=== PATIENT | male | born 1950 | race Caucasian/White ===

== ENCOUNTER → 2018-07-05 | Outpatient (CLI) | payer MEDICARE, BC ==
--- NOTE | 2018-07-05 11:25 | CONS ---
CONSULTATION DATE OF SERVICE: 07/05/2018 A 68-year-old gentleman who has [facility] for possible obstructive sleep apnea-hypopnea syndrome. HISTORY OF PRESENT ILLNESS/SLEEP WAKE EVALUATION: Patient usual sleep schedule from midnight until 7 or 8 a.m. Sometimes he has problem with falling asleep. No TV in bedroom. Patient has history of increasing heart rate while falling asleep and new hearing the pulse by his ears. Using alprazolam, he does not have the symptoms. He usually sleeps on the back position with his with loud snoring and awakenings from sleep up to 3 times with nocturia. Patient has difficulties to breathe through his nose. Breathe through his mouth, feels dry mouth when he wakes up, had some episodes of gasping for air during the sleep. In the morning, patient wakes up tired, worries about his sleep, has problem with memory. [place]ord Sleepiness Scale is 8. PAST MEDICAL HISTORY: Positive for coronary artery disease, hypertension, hyperlipidemia, possible anxiety, BPH. PAST SURGICAL HISTORY: Coronary artery bypass graft in 1996 with some revision in 2000. Carotid stent insertion right side in 2013. MEDICATIONS: Lisinopril, metoprolol, atorvastatin, aspirin, alprazolam. SOCIAL HISTORY: Positive for smoking in the past for about 30 pack years, quit in 1996. Alcohol consumption occasional. FAMILY HISTORY: Hypertension, hyperlipidemia, stroke, arthritis, sinus problems, snoring, headaches, bronchitis, acid reflux, thyroid problems. REVIEW OF SYSTEMS: Awakenings from sleep, episodes of sleepiness during the day. Patient takes naps in afternoon time, feel refreshed after naps. . PHYSICAL EXAM: gentleman without distress. BP 138/79, HR 77, RR 16, height 6, 2, weight 251.8, body mass index 32.2, temperature 98.2, oxygen saturation at room air 95%. OROPHARYNX: Low position of soft palate. Mallampati 4, restriction of nasal breathing on the left side. Wide neck 19 inches in circumference. ABDOMEN: Obese. Heart evaluation decreasing of pulse on both arms where vessels was taken for the CABG. Neck Supple, no JVD. Thyroid is not palpable. LUNGS Clear to percussion and to auscultation. Good air exchange. No wheezing or rhonchi. EXTREMITIES No clubbing or cyanosis. [employer] Awake, alert, and oriented X3. Cranial nerves 2 to 7 intact. There is no fasciculation or atrophy. noted. No focal deficits observed. PLAN: 1. Polysomnography for evaluation of patient's breathing during sleep. 2. CPAP/BiPAP titration if sleep study confirms obstructive sleep apnea-hypopnea syndrome. 3. Preferable position during sleep on the side. 4. No driving if patient feels any sleepiness. 5. I will see patient for follow up visit to explain results of testing and following plan. 6. Stimulus control, paradoxical intention, worry time, no watching clock to help with possible psychophysiological insomnia. Thank you very much for referring this patient for consultation. Sincerely. Jeferson Morris MD, PhD, FAASM Diplomat of [employer] [facility] [place] MMODL / KOMAL: [id number] /
== END ==
LOC: SLEEP 10:01
PROVIDERS: ATTEND Internal Medicine
DX: R06.83 Snoring (principal); R35.1 Nocturia; I25.10 Atherosclerotic heart disease of native coronary artery without angina pectoris; E66.9 Obesity, unspecified; I10 Essential (primary) hypertension; E78.5 Hyperlipidemia, unspecified; N40.0 Benign prostatic hyperplasia without lower urinary tract symptoms; Z95.1 Presence of aortocoronary bypass graft; Z68.32 Body mass index [BMI] 32.0-32.9, adult; Z79.82 Long term (current) use of aspirin; Z79.899 Other long term (current) drug therapy; Z87.891 Personal history of nicotine dependence
CPT/HCPCS: 99211